=== PATIENT | male | born 1990 | race Caucasian/White ===

== ENCOUNTER 2020-12-30 11:50 | Emergency (ER) | payer BC, SELFPAY ==
[2020-12-30 11:53] VITALS: BP 152/100; PULSE 85; RESP 16; TEMP 37.1; O2SAT 100
--- NOTE | 2020-12-30 12:24 | ED.SKABFB ---
HPI - Skin/Abscess/Foreign Bdy General Chief complaint: Unspecified Stated complaint: abscess Time Seen by Provider: 12/30/20 12:00 History of Present Illness HPI narrative: Painful lump in right axilla for 2 weeks. Becoming larger and now it is red and warm. Started while he was using crutches for a leg in [place]. No systemic symptoms. Related Data Allergies Allergy/AdvReac Type Severity Reaction Status Date / Time No Known Allergies Allergy Verified 12/30/20 11:52 Review of Systems Review of Systems: All systems reviewed & are unremarkable except as noted in HPI and below Constitutional: Constitutional: Denies chills and Denies fever(s) ENT: Reports system reviewed and no additional complaints, except as documented Cardiovascular: Cardiovascular: Denies chest pain Respiratory: Respiratory: Denies dyspnea Gastrointestinal: Gastrointestinal: Denies nausea Neurologic: Denies numbness and Denies weakness PMFSH Social History Social History Gender identity (if verbalized by the patient): Male Exam Const: General: healthy appearing, no acute distress and alert Orientation/consciousness: patient oriented x3 HENMT: Head: normal to inspection Neck: Neck: normal visual inspection and no lymphadenopathy Chest: Chest palpation & inspection: normal inspection of the chest and no tenderness Resp: Effort & Inspection: normal respiratory effort Auscultation: clear to auscultation bilaterally Cardio: Rate: regular rate Rhythm: regular rhythm Skin: Other: Erythema and induration of the right axilla with multiple bumps. No obvious fluctance Neuro: General: patient oriented x3, moves all extremities, no focal motor deficits and CN's II-XI intact bilaterally Speech: normal speech Extrem: General: normal to inspection Course Vital Signs Vital signs: Vital Signs Temperature 37.1 C 12/30/20 11:53 Pulse Rate 85 12/30/20 11:53 Respiratory Rate 16 12/30/20 11:53 Blood Pressure 152/100 H 12/30/20 11:53 Pulse Oximetry 100 12/30/20 11:53 Temperature 37.1 C 12/30/20 11:53 Pulse Rate 85 12/30/20 11:53 Respiratory Rate 16 12/30/20 11:53 Blood Pressure 152/100 H 12/30/20 11:53 Pulse Oximetry 100 12/30/20 11:53 Procedures Abscess I/D other: Date of Incision: 12/30/20 Time of Incision: 13:14 Local Anesthetic: lidocaine 1% and with epi Amount of anesthesia used (mL): 5 Technique: incised with #11 blade Amount of fluid expressed (mL): 3 Irrigation: Yes Packing used?: none I&D Results: Pus MDM - Skin/Abscess/Foreign Bdy Differential Diagnosis Differential diagnosis: Likely abscess of skin or subcutaneous tissue and cellulitis Discharge Plan Discharge Clinical Impression: Abscess of axilla, right Patient Disposition: Home, Self-Care Condition: Stable Instructions: Antibiotic Form, Abscess (ED) Additional Instructions: Keep follow-up appointment as planned Prescriptions: New sulfamethoxazole-trimethoprim [Bactrim DS] 800-160 mg tablet 1 tablet PO Q12H Qty: 20 RF: 0 Follow-up/Referrals: PHYSICIAN,GLACIOLOGIST [Primary Care Provider] -
== END 2020-12-30 13:26 | disposition home or self-care (01) ==
PROVIDERS: Emergency Provider Emergency Medicine
DX: L02.411 Cutaneous abscess of right axilla (principal)
CPT/HCPCS: 10060; 99283; A9270

== ENCOUNTER 2021-01-17 16:09 | Emergency (ER) | payer BC, SELFPAY ==
[2021-01-17 16:35] VITALS: BP 154/92; PULSE 88; RESP 18; TEMP 37; O2SAT 100
--- NOTE | 2021-01-17 17:57 | ED.GENADULT ---
HPI - General Adult General Chief complaint: Skin/Abscess/Foreign Body Stated complaint: Abscess under R arm Time Seen by Provider: 01/17/21 17:57 Source: patient and family Mode of arrival: ambulatory Limitations: no limitations History of Present Illness HPI narrative: Patient is here for evaluation of right axillary abscess that was drained and treated in December. In hand it never completely healed. At that time he was treated with Septra for 10 days. At this time there is a firm area in the center of his axilla and a reddened ring encircling it that appears to be yeast. Significant other states that it does drain quite a bit. No fever or chills. It is quite painful. Onset (ago): day(s) Location: upper extremity (axilla on right.) Severity: severe Quality: sharp Pain Consistency: constant Relieving factors: none Exacerbating factors: movement Associated symptoms: denies other symptoms Treatments prior to arrival: none Related Data Allergies Allergy/AdvReac Type Severity Reaction Status Date / Time No Known Allergies Allergy Verified 12/30/20 11:52 Review of Systems Review of Systems: All systems reviewed & are unremarkable except as noted in HPI and below [facility] Social History Social History Gender identity (if verbalized by the patient): Male Exam Const: General: no acute distress and alert Orientation/consciousness: patient oriented x3 HENMT: Head: normal to inspection Teeth and gingiva: abnormal tooth and associated gingiva (significant caries) Eyes: Pupils: Equal, round and reactive pupils present Resp: Effort & Inspection: normal respiratory effort Cardio: Rate: regular rate Rhythm: regular rhythm Skin: General skin exam: normal color Wounds: wounds noted (abscess ) Course Vital Signs Vital signs: Vital Signs Temperature 37.0 C 01/17/21 16:35 Pulse Rate 88 01/17/21 16:35 Respiratory Rate 18 01/17/21 16:35 Blood Pressure 154/92 H 01/17/21 16:35 Pulse Oximetry 100 01/17/21 16:35 Temperature 37.0 C 01/17/21 16:35 Pulse Rate 88 01/17/21 16:35 Respiratory Rate 18 01/17/21 16:35 Blood Pressure 154/92 H 01/17/21 16:35 Pulse Oximetry 100 01/17/21 16:35 Medical Decision Making Vital Signs Vital Signs: Vital Signs Temperature 37.0 C 01/17/21 16:35 Pulse Rate 88 01/17/21 16:35 Respiratory Rate 18 01/17/21 16:35 Blood Pressure 154/92 H 01/17/21 16:35 Pulse Oximetry 100 01/17/21 16:35 Temperature 37.0 C 01/17/21 16:35 Pulse Rate 88 01/17/21 16:35 Respiratory Rate 18 01/17/21 16:35 Blood Pressure 154/92 H 01/17/21 16:35 Pulse Oximetry 100 01/17/21 16:35 Discharge Plan Discharge Clinical Impression: Lenore infection Abscess of skin or subcutaneous tissue Qualifiers: Site of cutaneous abscess: extremity Site of cutaneous abscess of extremity: axilla Laterality: right Qualified Code(s): L02.411 - Cutaneous abscess of right axilla Patient Disposition: Home, Self-Care Condition: Stable Instructions: Antibiotic Form, Skin Yeast Infection (ED) Additional Instructions: He received your first dose of antibiotics and antifungal medication here in the emergency room please continue as prescribed. The area needs to be washed with warm soapy water several times a day and dried completely. Do your best to keep the area dry. When washing apply warm soaks to the area and attempt to express material from the abscess sites. If not improved at the end of treatment we do need to see a surgeon for further evaluation. And follow-up with your primary care physician the first available date understanding that you have a appointment for 3 weeks. If that can be moved up that would be best. Prescriptions: New clindamycin HCl 300 mg capsule 300 mg PO Q6H Qty: 30 RF: 0 fluconazole 150 mg tablet 150 mg PO DAILY Qty: 7 RF: 0 No Action sulfamethoxazole-trimetho
[2021-01-17] MEDS: LIDOCAINE/PRILOCAINE CREAM 2.5-2.5% TUBE 1 EACH TOPICAL (19:15)
[2021-01-17] MEDS: FLUCONAZOLE 150 MG TABLET PO (20:50)
[2021-01-17] MEDS: CLINDAMYCIN HCL 150 MG CAP 450 MG PO (20:50)
== END 2021-01-17 21:31 | disposition home or self-care (01) ==
PROVIDERS: Emergency Provider Emergency Medicine
DX: L02.411 Cutaneous abscess of right axilla (principal); B37.9 Candidiasis, unspecified
CPT/HCPCS: 99283; A9270

== ENCOUNTER 2024-09-08 19:23 | Emergency (ER) | payer SELFPAY ==
[2024-09-08] VITALS (22 sets, daily range): BP systolic 111–151; BP diastolic 74–94; PULSE 74–101; RESP 16–28; TEMP 36.4; O2SAT 98–100
--- NOTE | ~2024-09-08 | CT_ITS ---
EXAMINATION: CT abdomen pelvis w con DATE: 09/08/2024 22:33 INDICATION: RUQ pain TECHNIQUE: Computed tomography (CT) of the abdomen and pelvis was performed with 100 mL Omnipaque-350 intravenous contrast. Automated exposure control and iterative reconstruction technique were employe d. The dose-length product was 747.31 mGy-cm. COMPARISON: None. FINDINGS: Lower thorax: Significant bilateral gynecomastia. Bilateral dependent atelectasis. Liver: Mildly enlarged. Biliary/Gallbladder: Mild pericholecystic fluid and moderate pericholecystic inflammatory change. No gallstones detected. No bile duct dilation. Pancreas: No mass or duct dilation. Spleen: Mildly enlarged. Adrenals:No mass. Kidneys: No suspicious mass, obstructing stone, or hydronephrosis. GI tract: No small or large bowel dilation. Short segment area of pericolonic inflammatory change hep atic flexure, presumably reactive. Normal appendix. Mesentery/Peritoneum: No ascites, mass, or free air. Retroperitoneum: No mass. Pelvis: Pelvic organs are within normal limits. Soft Tissues: Soft tissues and body wall unremarkable. Bones: No acute osseous finding. IMPRESSION: Bilateral gynecomastia. Hepatosplenomegaly. Cholecystitis. Mild inflammatory change at the hepatic flexure is presumably reactive to the adjacent gallbladder in flammation. Reviewed, dictated and finalized at location K. HEALTH CARE WORKER IMPRESSION: Bilateral gynecomastia. Hepatosplenomegaly. Cholecystitis. Mild inflammatory change at the hepatic flexure is presumably reactive to the a djacent gallbladder inflammation.
--- OUTSIDE RECORDS SUMMARY | 2024-09-08 19:26 | XMS_ITS | CONTINUITY OF CARE DOCUMENT ---
Author Name chris perez Address Unknown Organization [facility] Address [address] [place] [address] Phone [phone] Care Team Providers Care Cafeteria Assistant Name Role Phone Beau ALVA, Lance Unavailable RONNY GRANADOS MD Unavailable [phone] RONNY GRANADOS MD Unavailable [phone] INSURANCE PROVIDERS Payer name Policy type / Coverage type [place] red green party ID SELF PAY [facility] [id number]
[2024-09-08 21:11] LABS: Basophils Absolute Auto 0.1 K/mm3 (0.0-0.1); Basophils Percent Auto 0.7 % (0.2-1.2); Eosinophils Absolute Auto 0.1 K/mm3 (0-0.3); Eosinophils Percent Auto 1.1 % (0-4.4); Hematocrit 38.6 % (42.0-52.0); Hemoglobin 13.2 g/dL (14.0-18.0); Immature Granulocyte Absolute 0.03 K/mm3 (0.00-0.031); Immature Granulocyte Percent A 0.3 % (0-0.5); Lymphocytes Absolute Auto 1.63 K/mm3 (0.9-3.2); Lymphocytes Percent Auto 17.1 % (18.3-44.2); Mean Corpuscular HGB Conc 34.2 g/dl (32-36); Mean Corpuscular Hemoglobin 30.1 pg (26-34); Mean Corpuscular Volume 87.9 fl (80-100); Mean Platelet Volume 11.6 fl (7.4-10.4); Monocytes Absolute Auto 0.5 K/mm3 (0.1-0.6); Monocytes Percent Auto 5.3 % (2.6-8.5); Neutrophils Absolute Auto 7.2 K/mm3 (1.3-6.7); Neutrophils Percent Auto 75.5 % (45.5-73.1); Platelet Count Result 217 k/mm3 (150-375); Red Blood Count 4.39 M/mm3 (4.6-6.20); Red Cell Distribution Width 12.1 % (11.5-14.5); White Blood Count 9.5 K/mm3 (4.5-10.0)
[2024-09-08 21:22] LABS: Alanine Aminotransferase 172 U/L (6-50); Albumin Level 4.1 g/dL (3.5-5.1); Alkaline Phosphatase 144 U/L (38-126); Anion Gap 12 mmol/L (4-12); Aspartate Amino Transferase 58 U/L (17-59); Bilirubin,Total 0.5 mg/dL (0.2-1.3); Blood Urea Nitrogen 14 mg/dL (9-20); Calcium 8.7 mg/dL (8.4-10.2); Carbon Dioxide 22 mmol/L (22-30); Chloride 105 mmol/L (98-107); Estimated CRCL calculation 168 ml/min; Estimated Glomerular Filt Rate > 60; Glucose 104 mg/dL (65-110); Lipase 56 U/L (23-300); Potassium 4.2 mmol/L (3.4-5.0); Sodium 139 mmol/L (137-145)
--- OUTSIDE RECORDS SUMMARY | 2024-09-08 21:31 | XMS_ITS | CONTINUITY OF CARE DOCUMENT ---
Author Name chris perez Address Unknown Organization [facility] Address [address] [place] [address] Phone [phone] Care Team Providers Care Adult Probation Officer Name Role Phone Beau ALVA, Lance Unavailable [phone] RONNY GRANADOS MD Unavailable [phone] RONNY GRANADOS MD Unavailable [phone] INSURANCE PROVIDERS Payer name Policy type / Coverage type [place] red libertarian ID SELF PAY [facility] [id number]
--- NOTE | 2024-09-08 21:33 | ED.ABDPAIN ---
HPI - Abdominal Pain General Chief Complaint: Abdominal Pain Stated Complaint: abd pain Time Seen by Provider: 09/08/24 21:03 Source: patient Mode of arrival: ambulatory Limitations: no limitations History of Present Illness HPI narrative: This is a 34 year old male that presents to the ER for abdominal pain. Ongoing over the last 3 days. Reports associated nausea and vomiting. Reports he was seen at [facility] when pain initially started, but the pain has continued/worsened. Denies fevers. Related Data Allergies Allergy/AdvReac Type Severity Reaction Status Date / Time No Known Allergies Allergy Verified 09/08/24 19:45 Review of Systems Review of Systems: CONSTITUTIONAL: Denies fever GASTROINTESTINAL: Reports abdominal pain, nausea, vomiting All systems reviewed & are unremarkable except as noted in HPI and below PMFSH Social History Social History (Updated 09/08/24 @ 21:39 by Marion Okefee PA-C) Substance use: never Gender identity (if verbalized by the patient): Male Exam Narrative: GENERAL: Well-appearing, well-nourished, and in no acute distress. HEAD: Normocephalic, atraumatic. EYES: EOMI. CHEST: Clear to auscultation. No respiratory distress. No wheezes rales or rhonchi HEART: Regular rate and rhythm. No murmur heard. Normal peripheral pulses. ABDOMEN: Soft, nondistended, normal active bowel sounds. Mild tenderness to palpation in the right upper quadrant, without guarding EXTREMITIES: Normal range of motion. No edema. SKIN: Warm, dry, no rash. NEURO: No focal deficits. Alert and oriented x3. PSYCH: Normal mood and affect Course Course Emergency Course: Patient updated on his workup. Resting comfortably. Reports he is ready for discharge Vital Signs Vital signs: Vital Signs Temperature 97.5 F L 09/08/24 19:36 Pulse Rate 95 09/08/24 19:36 Respiratory Rate 20 09/08/24 19:36 Blood Pressure 151/90 H 09/08/24 19:36 Pulse Oximetry 100 09/08/24 19:36 Oxygen Delivery Room Air 09/08/24 19:36 Temperature 97.5 F L 09/08/24 19:36 Pulse Rate 97 09/08/24 22:45 Respiratory Rate 22 H 09/08/24 22:45 Blood Pressure 136/93 H 09/08/24 22:17 Pulse Oximetry 100 09/08/24 22:45 Oxygen Delivery Room Air 09/08/24 19:36 MDM - Abdominal Pain MDM Narrative Medical decision making narrative: Patient presents to the emergency department for right upper quadrant abdominal pain. Ongoing over the last couple of days. He is afebrile and nontoxic appearing. His vitals are stable. Cbc without leukocytosis. Metabolic panel with mild elevation in ALT. Lipase is normal. Urine without evidence of infection. CT abdomen and pelvis shows inflammation of the gallbladder. Patient was hydrated in the ER. He did not want any pain medication. Patient updated on his workup. Resting comfortably. Reports he is ready for discharge. Will be started on oral antibiotics. Was instructed on a low-fat diet and will be given pain medication. He is to follow up with General surgery. He was given warnings to return to the ER Differential Diagnosis Differential diagnosis: Likely other (Cholecystitis, biliary colic, pancreatitis) Lab Data Attestation: I reviewed the patient's lab results. 09/08/24 20:22 09/08/24 20:22 Labs: Lab Results 09/08/24 09/08/24 Range/Units 20:22 22:17 WBC 9.5 (4.5-10.0) K/mm3 RBC 4.39 L (4.6-6.20) M/mm3 Hgb 13.2 L (14.0-18.0) g/dL Hct 38.6 L (42.0-52.0) % MCV 87.9 (80-100) fl MCH 30.1 (26-34) pg MCHC 34.2 (32-36) g/dl RDW 12.1 (11.5-14.5) % Plt Count 217 (150-375) k/mm3 MPV 11.6 H (7.4-10.4) fl Immature Gran % (Auto) 0.3 (0-0.5) % Neut % (Auto) 75.5 H (45.5-73.1) % Lymph % (Auto) 17.1 L (18.3-44.2) % [place] % (Auto) 5.3 (2.6-8.5) % Eos % (Auto) 1.1 (0-4.4) % Baso % (Auto) 0.7 (0.2-1.2) % Lymph # (Auto) 1.63 (0.9-3.2) K/mm3 [place] # (Auto) 0.5 (0.1-0.6) K/mm3 Eos # (Auto) 0.1 (0-0.3) K/mm3 Baso # (Auto) 0.1 (0.0-0.1) K/mm3 Abs Immat Gran (auto) 0.03 (0.00-0.031) K/mm3 Absolute Neuts (auto) 7.2 H (1.3-6.7) K/mm3 Absolute Nucleated RBC 0.000 (0.0-0.012) K/mm3 Nucleated RBC % 0.0 (0.0-0.2) % Sodium 139 (137-145) mmol/L Potassium 4.2 (3.4-5.0) mmol/L Chloride 105 (98-107) mmol/L Carbon Dioxide 22 (22-30) mmol/L Anion Gap 12 (4-12) mmol/L BUN 14 (9-20) mg/dL Creatinine 0.60 L (0.7-1.3) mg/dL Estim Creat Clear Calc 168 ml/min Estimated GFR > 60 (59 - ) Glucose 104 (65-110) mg/dL Calcium 8.7 (8.4-10.2) mg/dL Total Bilirubin 0.5 (0.2-1.3) mg/dL AST 58 (17-59) U/L ALT 172 H (6-50) U/L Alkaline Phosphatase 144 H (38-126) U/L Total Protein 7.0 (6.3-8.2) g/dL Albumin 4.1 (3.5-5.1) g/dL Lipase 56 (23-300) U/L Urine Color Yellow (Yellow) Urine Appearance Clear (Clear) Urine pH 6.5 (5.0-9.0) Ur Specific [place] 1.018 (1.001-1.035) Urine Protein Negative (Negative) mg/dL Urine Glucose (UA) Negative (Negative) mg/dL Urine Ketones Negative (Negative) mg/dL Ur Blood (Man) Negative (Negative) Urine Nitrate Negative (Negative) Urine Bilirubin Negative (Negative) Urine Urobilinogen 1.0 (<2.0) mg/dL Leukocyte Esterase Rfl Negative (Negative) DUYEN/UL Imaging Data Radiologist's impression: ITS Impressions Abdomen/Pelvis CT 09/08/24 22:54 IMPRESSION: Bilateral gynecomastia. Hepatosplenomegaly. Cholecystitis. Mild inflammatory change at the hepatic flexure is presumably reactive to the adjacent gallbladder inflammation. Critical Care Time Critical Care Time Critical Care Time: No Discharge Plan Discharge Clinical Impression: Biliary colic Patient Disposition: Home, Self-Care Condition: Improved Instructions: Antibiotic Form, Biliary Colic (ED), Low Fat Diet (ED) Additional Instructions: Return to the ER if you experience fever, worsening abdominal pain with nausea and vomiting, you are unable to keep down liquids or solids, or any other symptoms that are concerning to you Remain well hydrated. Take oral antibiotic as prescribed. Pain medication as needed. Low fat diet Follow up with general surgery Patient Language: Kiswahili Prescriptions: New hydrocodone-acetaminophen 5-325 mg tablet 1 tablet PO Q6H PRN (Reason: pain) Qty: 14 0RF amoxicillin-pot clavulanate 875-125 mg tablet 1 tablet PO Q12H 5 Days Qty: 10 0RF No Action sulfamethoxazole-trimethoprim [Bactrim DS] 800-160 mg tablet 1 tablet PO Q12H Qty: 20 0RF clindamycin HCl 300 mg capsule 300 mg PO Q6H Qty: 30 0RF fluconazole 150 mg tablet 150 mg PO DAILY Qty: 7 0RF Follow-up/Referrals: Destini Murrell MD [Physician] - PHYSICIAN,PUBLIC ADDRESS SERVICER [Primary Care Provider] -
[2024-09-08] MEDS: SODIUM CHLORIDE 0.9% IV 1,000 ML 999 ML IV CONT (21:39)
[2024-09-08 22:34] LABS: Add Urine Microscopic? NO; Appearance Urine Clear (Clear); Bilirubin Urine Negative (Negative); Blood Urine Negative (Negative); Color Urine Yellow (Yellow); Glucose Urine UA Negative (Negative); Ketones Urine Negative (Negative); Leukocyte Esterase Ur Negative LEU/UL (Negative); Nitrate Urine Negative (Negative); Protein Urine Negative (Negative); Specific Grav Ur 1.018 (1.001-1.035); pH Urine 6.5 (5.0-9.0)
[2024-09-09 00:12] VITALS: BP 132/84; PULSE 91; RESP 16; O2SAT 100
== END 2024-09-09 00:13 | disposition home or self-care (01) ==
PROVIDERS: Emergency Provider Physician Assistant
DX: K80.40 Calculus of bile duct with cholecystitis, unspecified, without obstruction (principal); R16.2 Hepatomegaly with splenomegaly, not elsewhere classified; N62 Hypertrophy of breast
CPT/HCPCS: 36415; 74177; 80053; 81003; 83690; 85025; 96360; 99284; J7030; Q9967

== ENCOUNTER 2025-05-20 22:01 | Emergency (ER) | payer SELFPAY ==
--- NOTE | ~2025-05-20 | CT_ITS ---
EXAMINATION: CT abdomen pelvis w con DATE: 05/21/2025 00:08 INDICATION: Cholelithiasis. TECHNIQUE: Computed tomography (CT) of the abdomen and pelvis was performed with 100 mL Omnipaque 350 intravenous contrast. Automated exposure control and iterative reconstruction technique were employed. The dose-length product was 819.76 mGy-cm. COMPARISON: CT abdomen and pelvis 09/08/2024 FINDINGS: The visualized portions of lung bases demonstrate mild atelectasis. No pleural effusion. The heart size is normal. No pericardial effusion. There is diffuse hepatic steatosis. The spleen is normal. The gallbladder is normal in size. The pancreas, adrenal glands, and kidneys are normal. There are no dilated loops of bowel. The appendix is normal. There are no pathologically enlarged lymph nodes. There is no free intraperitoneal fluid. There is mild thoracic and lumbar spondylosis. IMPRESSION: 1. Diffuse hepatic steatosis. Reviewed, dictated and finalized at location E. ICIAN ASSISTANT SURGERY
[2025-05-20 22:05] VITALS: BP 164/98; PULSE 74; RESP 18; TEMP 36.6; O2SAT 100
[2025-05-20 22:25] LABS: Hematocrit 41.3 % (42.0-52.0); Hemoglobin 13.9 g/dL (14.0-18.0); Immature Granulocyte Percent A 0.2 % (0-0.5); Lymphocytes Absolute Auto 3.51 K/mm3 (0.9-3.2); Mean Corpuscular HGB Conc 33.7 g/dl (32-36); Mean Corpuscular Hemoglobin 29.3 pg (26-34); Mean Corpuscular Volume 87.1 fl (80-100); Nucleated Red Blood Cells Absolute Auto 0.000 K/mm3 (0.0-0.012); Nucleated Red Blood Cells Perc 0.0 % (0.0-0.2); Platelet Count Result 252 k/mm3 (150-375); Red Blood Count 4.74 M/mm3 (4.6-6.20); White Blood Count 9.3 K/mm3 (4.5-10.0)
[2025-05-20 22:38] LABS: Alanine Aminotransferase 30 U/L (6-50); Albumin Level 4.5 g/dL (3.5-5.1); Alkaline Phosphatase 88 U/L (38-126); Anion Gap 9 mmol/L (4-12); Aspartate Amino Transferase 28 U/L (17-59); Bilirubin,Total 0.5 mg/dL (0.2-1.3); Blood Urea Nitrogen 13 mg/dL (9-20); Calcium 8.5 mg/dL (8.4-10.2); Carbon Dioxide 26 mmol/L (22-30); Chloride 103 mmol/L (98-107); Estimated CRCL calculation 145 ml/min; Estimated Glomerular Filt Rate > 60; Glucose 121 mg/dL (65-110); Lipase 113 U/L (23-300); Potassium 3.9 mmol/L (3.4-5.0); Sodium 138 mmol/L (137-145); Total Protein 7.8 g/dL (6.3-8.2)
--- NOTE | 2025-05-20 23:43 | ED_ITS ---
HPI - Abdominal Pain General Chief Complaint: Abdominal Pain Stated Complaint: back pain / flank pain Time Seen by Provider: 05/20/25 22:38 History of Present Illness HPI narrative: Patient is a 35-year-old male presents to the ER with complaints of severe back pain and emesis. He reports his back pain started approximately 2 hours prior to arrival. Patient reports it radiates slightly around to his right side. He denies any injury to his back, recent fevers, abnormal urinary symptoms, or constipation. Patient endorses a history of gallbladder attacks but reports he has not had a cholecystectomy due to insurance. He denies any other medical history and does not take any daily medications. Patient denies any alcohol or marijuana use. Related Data Allergies Allergy/AdvReac Type Severity Reaction Status Date / Time No Known Allergies Allergy Verified 05/20/25 22:01 Review of Systems 2 Review of Systems: All systems reviewed & are unremarkable except as noted in HPI and below PMFSH Social History Social History Substance use: never Gender identity (if verbalized by the patient): Male Exam 2 Narrative: GENERAL: Ill appearing, well-nourished, non-toxic, in mild distress d/t pain HEAD: Normocephalic, atraumatic. NECK: Supple. No adenopathy, no masses. RESPIRATORY: Airway patent, respirations nonlabored. Clear to auscultation bilaterally, no rales, rhonchi, wheezing. CARDIOVASCULAR: Regular rate and rhythm without murmurs, rubs, or gallops. Peripheral pulses 2+ and equal bilaterally. ABDOMINAL: Soft, right lower quadrant tenderness with palpation, mildly distended, no hepatosplenomegaly. Normoactive BS. + Baxter sign, positive McBurney's point, positive psoas sign MUSCULOSKELETAL: Moves all extremities. Strength/ROM intact without gross deformities. SKIN: Warm, dry, normal color. No rashes. NEURO: A&O X3. Speech clear. Cranial nerves II-XII intact. No ataxic movements. PSYCHIATRIC: Appropriate mood and affect. Normal interaction. Course Vital Signs Vital signs: Vital Signs Temperature 36.6 C 05/20/25 22:05 Pulse Rate 74 05/20/25 22:05 Respiratory Rate 18 05/20/25 22:05 Blood Pressure 164/98 H 05/20/25 22:05 Pulse Oximetry 100 05/20/25 22:05 Oxygen Delivery Room Air 05/20/25 22:05 Temperature 36.6 C 05/20/25 22:05 Pulse Rate 74 05/20/25 22:05 Respiratory Rate 18 05/20/25 22:05 Blood Pressure 164/98 H 05/20/25 22:05 Pulse Oximetry 100 05/20/25 22:05 Oxygen Delivery Room Air 05/20/25 22:05 MDM - Abdominal Pain MDM Narrative Medical decision making narrative: Patient is a 35-year-old male presents to the ER with complaints of severe back pain and emesis. He reports his back pain started approximately 2 hours prior to arrival. Patient reports it radiates slightly around to his right side. He denies any injury to his back, recent fevers, abnormal urinary symptoms, or constipation. Patient endorses a history of gallbladder attacks but reports he has not had a cholecystectomy due to insurance. He denies any other medical history and does not take any daily medications. Patient denies any alcohol or marijuana use. Labs Ordered: CBC, CMP, UDS, lipase, UA Imaging Ordered: CT abdomen pelvis Medications Ordered: Dilaudid 0.5 mg IV, Zofran 4 mg IV, 1 L normal saline IV bolus Results: Patient's CT scan indicates no calcified gallstones are seen. There may be some fluid around the gallbladder. No biliary ductal dilatation is noted. The kidneys demonstrate bilateral function. No evidence of hydronephrosis. No calculi are noted within the urinary bladder. Unremarkable CT scan appearance noted in the appendix. Enlarged fatty liver. Splenomegaly. Diagnosis: biliary colic Consults: General surgery (outpatient), Dr. Dyson Patient Education/Shared MDM: Results of lab work and imaging shared with patient. He endorses improvement of symptoms following medication administration. Patient strongly advised to maintain hydration status upon discharge and follow-up with General surgery as soon as possible for further evaluation of his gallbladder. He will not be discharged home with any new prescriptions, but was advised to take Tylenol and ibuprofen for pain control. Pt will be given a dose of Toradol prior to discharge. Strict return precautions provided. Patient verbalized understanding and is in agreement with plan. Vital signs stable at time of discharge. All questions answered. Differential Diagnosis Differential diagnosis: Likely abdominal pain, calculus of kidney, constipation, diverticulitis, pancreatitis and small bowel obstruction Lab Data Attestation: I reviewed the patient's lab results. 05/20/25 22:19 05/20/25 22:19 Labs: Lab Results 05/20/25 05/21/25 Range/Units 22:19 01:08 WBC 9.3 (4.5-10.0) K/mm3 RBC 4.74 (4.6-6.20) M/mm3 Hgb 13.9 L (14.0-18.0) g/dL Hct 41.3 L (42.0-52.0) % MCV 87.1 (80-100) fl MCH 29.3 (26-34) pg MCHC 33.7 (32-36) g/dl RDW 12.5 (11.5-14.5) % Plt Count 252 (150-375) k/mm3 MPV 10.5 H (7.4-10.4) fl Immature Gran % (Auto) 0.2 (0-0.5) % Neut % (Auto) 52.7 (45.5-73.1) % Lymph % (Auto) 37.6 (18.3-44.2) % [place] % (Auto) 7.0 (2.6-8.5) % Eos % (Auto) 1.5 (0-4.4) % Baso % (Auto) 1.0 (0.2-1.2) % Lymph # (Auto) 3.51 H (0.9-3.2) K/mm3 [place] # (Auto) 0.7 H (0.1-0.6) K/mm3 Eos # (Auto) 0.1 (0-0.3) K/mm3 Baso # (Auto) 0.1 (0.0-0.1) K/mm3 Abs Immat Gran (auto) 0.02 (0.00-0.031) K/mm3 Absolute Neuts (auto) 4.9 (1.3-6.7) K/mm3 Absolute Nucleated RBC 0.000 (0.0-0.012) K/mm3 Nucleated RBC % 0.0 (0.0-0.2) % Sodium 138 (137-145) mmol/L Potassium 3.9 (3.4-5.0) mmol/L Chloride 103 (98-107) mmol/L Carbon Dioxide 26 (22-30) mmol/L Anion Gap 9 (4-12) mmol/L BUN 13 (9-20) mg/dL Creatinine 0.70 (0.7-1.3) mg/dL Estim Creat Clear Calc 145 ml/min Estimated GFR > 60 (59 - ) Glucose 121 H (65-110) mg/dL Calcium 8.5 (8.4-10.2) mg/dL Total Bilirubin 0.5 (0.2-1.3) mg/dL AST 28 (17-59) U/L ALT 30 (6-50) U/L Alkaline Phosphatase 88 (38-126) U/L Total Protein 7.8 (6.3-8.2) g/dL Albumin 4.5 (3.5-5.1) g/dL Lipase 113 (23-300) U/L Urine Color Yellow (Yellow) Urine Appearance Clear (Clear) Urine pH 7.0 (5.0-9.0) Ur Specific [place] > 1.045 H (1.001-1.035) Urine Protein Trace (Negative) mg/dL Urine Glucose (UA) Negative (Negative) mg/dL Urine Ketones Negative (Negative) mg/dL Ur Blood (Man) Negative (Negative) Urine Nitrate Negative (Negative) Urine Bilirubin Negative (Negative) Urine Urobilinogen 1.0 (<2.0) mg/dL Leukocyte Esterase Rfl Negative (Negative) DUYEN/UL Urine RBC 0-2 (0-2) /hpf Urine WBC 6-10 H (0-3) /hpf Ur Squamous Epith Cells None seen (Few) /hpf Urine Bacteria None seen /hpf Urine Casts 0-2 Urine Opiates Screen Negative (Negative) Urine Methadone Screen Negative (Negative) Ur Barbiturates Screen Negative (Negative) Ur Phencyclidine Scrn Negative (Negative) Ur Amphetamine Screen Negative (Negative) U Benzodiazepines Scrn Negative (Negative) Urine Cocaine Screen Negative (Negative) U Cannabinoids Screen Negative (Negative) Imaging Data Attestation: I personally reviewed and interpreted this imaging study as follows: Radiologist's impression: Patient's CT scan indicates no calcified gallstones are seen. There may be some fluid around the gallbladder. No biliary ductal dilatation is noted. The kidneys demonstrate bilateral function. No evidence of hydronephrosis. No calculi are noted within the urinary bladder. Unremarkable CT scan appearance noted in the appendix. Enlarged fatty liver. Splenomegaly. Discharge Plan Discharge Clinical Impression: Biliary colic, Abdominal pain with radiation to back, Fatty liver Patient Disposition: Home Condition: Stable Instructions: Antibiotic Form, Biliary Colic (ED) Additional Instructions: Please return to the ER with any worsening symptoms. Follow-up with General surgery for further evaluation and treatment. You may take Tylenol and/or ibuprofen for pain control. Patient Language: Chinese Prescriptions: No Action sulfamethoxazole-trimethoprim [Bactrim DS] 800-160 mg tablet 1 tablet PO Q12H Qty: 20 0RF clindamycin HCl 300 mg capsule 300 mg PO Q6H Qty: 30 0RF fluconazole 150 mg tablet 150 mg PO DAILY Qty: 7 0RF hydrocodone-acetaminophen 5-325 mg tablet 1 tablet PO Q6H PRN (Reason: pain) Qty: 14 0RF amoxicillin-pot clavulanate 875-125 mg tablet 1 tablet PO Q12H 5 Days Qty: 10 0RF Follow-up/Referrals: PHYSICIAN,STATION ENGINEER MAIN LINE [Primary Care Provider, Internal Medicine] Devan Dyson MD [Physician, General Surgery] Stand Alone Forms: Work/School Release IP Time of Disposition: 02:06
[2025-05-20] MEDS: HYDROmorphone HCL INJ (*CRX) 1 MG/ML SYR 0.5 MG IV PUSH (23:55)
[2025-05-20] MEDS: ONDANSETRON INJ 4 MG/2 ML VIAL IV PUSH (23:56)
[2025-05-20] MEDS: SODIUM CHLORIDE 0.9% IV 1,000 ML 999 ML IV CONT (23:58)
--- NOTE | 2025-05-20 23:59 | PC.NURSE ---
This RN attempted to collect urine sample from pt two times, pt stating he is not able to urinate at this moment.
[2025-05-21 01:20] LABS: Add Urine Microscopic? YES; Appearance Urine Clear (Clear); Glucose Urine UA Negative (Negative); Leukocyte Esterase Ur Negative LEU/UL (Negative); Nitrate Urine Negative (Negative); Non Pathogenic Casts 0-2; Specific Grav Ur > 1.045 (1.001-1.035)
[2025-05-21 01:31] LABS: Cannabinoid Screen Urine Negative (Negative)
[2025-05-21] MEDS: KETOROLAC 15 MG/ML VIAL (*BKC) IV PUSH (02:22)
[2025-05-21 02:23] VITALS: BP 125/80; PULSE 80; RESP 24; TEMP 36.8; O2SAT 100
== END 2025-05-21 02:24 | disposition home or self-care (01) ==
PROVIDERS: Emergency Medicine; Emergency Provider Registered Nurse
DX: M54.9 Dorsalgia, unspecified (principal); R10.31 Right lower quadrant pain; K76.0 Fatty (change of) liver, not elsewhere classified
CPT/HCPCS: 36415; 74177; 80053; 80307; 81001; 83690; 85025; 87086; 96361; 96374; 96375; 99284; J1171; J1885; J2405; J7030; Q9967

== ENCOUNTER 2025-05-23 13:04 | Emergency (ER) | payer SELFPAY ==
--- NOTE | ~2025-05-23 | US_ITS ---
US right upper quadrant Indication: pain Comparison: None Technique: Tom-scale and color Doppler images were obtained. Findings: LIVER: Mild increased echogenicity of the liver. . GALLBLADDER/BILIARY: There is cholelithiasis,, no wall thickening, no pericholecystic fluid. CBD 6 mm. [place] sign negative. PANCREAS: Pancreas limited by bowel gas. Right Kidney: Right kidney 11.5 x 4.9 x 4.2 cm, normal. Impression: Cholelithiasis Reviewed, dictated and finalized at location P. USION PARAEDUCATOR Impression: Cholelithiasis
[2025-05-23 13:05] VITALS: BP 162/94; PULSE 96; RESP 20; TEMP 36.4; O2SAT 100
--- NOTE | 2025-05-23 14:05 | ED_ITS ---
HPI - General Adult General Chief complaint: Back Pain/Injury Stated complaint: right flank pain Time Seen by Provider: 05/23/25 13:55 History of Present Illness HPI narrative: Patient is a 35-year-old male who presents the ER with right-sided abdominal pain and flank pain. Ongoing throughout the day. Reports history of gallstones and has had similar pain in the past. He has nausea and dry heaving. No fevers or chills. No alleviating factors. Related Data Allergies Allergy/AdvReac Type Severity Reaction Status Date / Time No Known Allergies Allergy Verified 05/20/25 22:01 Review of Systems 2 Review of Systems: All systems reviewed & are unremarkable except as noted in HPI and below Constitutional: Constitutional: Reports no additional constitutional complaints ENT: Reports system reviewed and no additional complaints, except as documented Cardiovascular: Cardiovascular: Reports no additional cardiovascular complaints Respiratory: Respiratory: Reports no additional respiratory complaints Gastrointestinal: Gastrointestinal: Reports no additional gastrointestinal complaints PMFSH Past Medical History Medical History (Updated 05/23/25 @ 17:06 by Freddie Blackwell MD) Biliary colic Fatty liver Social History Social History Substance use: never Gender identity (if verbalized by the patient): Male Exam 2 Narrative: GENERAL: Uncomfortable-appearing, well-nourished, and in no acute distress. HEAD: Normocephalic, atraumatic. ENT: Mucous membranes moist. CHEST: Clear to auscultation. No respiratory distress. HEART: Regular rate and rhythm. Normal peripheral pulses. ABDOMEN: Soft, TTP RUQ, nondistended. EXTREMITIES: Normal range of motion. No edema. SKIN: Warm, dry, no rash. NEURO: Alert and oriented x3. PSYCH: Normal mood and affect. Course Course Emergency Course: Pain resolved with morphine. Discussed labs and imaging results. Encourage low-fat diet and follow up with General surgery. Patient has not had his gallbladder out due to insurance issues. Vital Signs Vital signs: Vital Signs Temperature 97.6 F 05/23/25 13:05 Pulse Rate 96 05/23/25 13:05 Respiratory Rate 20 05/23/25 13:05 Blood Pressure 162/94 H 05/23/25 13:05 Pulse Oximetry 100 05/23/25 13:05 Temperature 97.6 F 05/23/25 13:05 Pulse Rate 74 05/23/25 14:53 Respiratory Rate 20 05/23/25 14:53 Blood Pressure 153/80 H 05/23/25 14:53 Pulse Oximetry 100 05/23/25 14:53 Medical Decision Making Vital Signs Vital Signs: Vital Signs Temperature 97.6 F 05/23/25 13:05 Pulse Rate 96 05/23/25 13:05 Respiratory Rate 20 05/23/25 13:05 Blood Pressure 162/94 H 05/23/25 13:05 Pulse Oximetry 100 05/23/25 13:05 Temperature 97.6 F 05/23/25 13:05 Pulse Rate 74 05/23/25 14:53 Respiratory Rate 20 05/23/25 14:53 Blood Pressure 153/80 H 05/23/25 14:53 Pulse Oximetry 100 05/23/25 14:53 Lab Data 05/23/25 14:10 05/23/25 14:10 Labs: Lab Results 05/23/25 Range/Units 14:10 WBC 9.3 (4.5-10.0) K/mm3 RBC 4.51 L (4.6-6.20) M/mm3 Hgb 13.4 L (14.0-18.0) g/dL Hct 39.7 L (42.0-52.0) % MCV 88.0 (80-100) fl MCH 29.7 (26-34) pg MCHC 33.8 (32-36) g/dl RDW 12.6 (11.5-14.5) % Plt Count 237 (150-375) k/mm3 MPV 11.1 H (7.4-10.4) fl Immature Gran % (Auto) 0.2 (0-0.5) % Neut % (Auto) 66.3 (45.5-73.1) % Lymph % (Auto) 24.0 (18.3-44.2) % [place] % (Auto) 7.3 (2.6-8.5) % Eos % (Auto) 1.2 (0-4.4) % Baso % (Auto) 1.0 (0.2-1.2) % Lymph # (Auto) 2.24 (0.9-3.2) K/mm3 [place] # (Auto) 0.7 H (0.1-0.6) K/mm3 Eos # (Auto) 0.1 (0-0.3) K/mm3 Baso # (Auto) 0.1 (0.0-0.1) K/mm3 Abs Immat Gran (auto) 0.02 (0.00-0.031) K/mm3 Absolute Neuts (auto) 6.2 (1.3-6.7) K/mm3 Absolute Nucleated RBC 0.000 (0.0-0.012) K/mm3 Nucleated RBC % 0.0 (0.0-0.2) % Sodium 140 (137-145) mmol/L Potassium 4.1 (3.4-5.0) mmol/L Chloride 106 (98-107) mmol/L Carbon Dioxide 26 (22-30) mmol/L Anion Gap 8 (4-12) mmol/L BUN 11 (9-20) mg/dL Creatinine 0.70 (0.7-1.3) mg/dL Estim Creat Clear Calc 163 ml/min Estimated GFR > 60 (59 - ) Glucose 100 (65-110) mg/dL Calcium 8.7 (8.4-10.2) mg/dL Total Bilirubin 0.6 (0.2-1.3) mg/dL AST 33 (17-59) U/L ALT 31 (6-50) U/L Alkaline Phosphatase 82 (38-126) U/L Total Protein 7.6 (6.3-8.2) g/dL Albumin 4.5 (3.5-5.1) g/dL Lipase 73 (23-300) U/L Imaging Data Radiologist's impression: ITS Impressions Upper Quadrant Ultrasound 05/23/25 15:18 Impression: Cholelithiasis Discharge Plan Discharge Clinical Impression: Cholelithiasis Patient Disposition: Home Condition: Stable Instructions: Biliary Colic (ED) Additional Instructions: Return to the emergency department if you develop severe abdominal pain, severe nausea and vomiting to the point where you are unable to keep down fluids, if you develop chest pain or difficulty breathing, blood in your stool, dizziness or fainting, or if you develop any other new or concerning symptoms as these could be signs of more serious medical illness. Try to stay well hydrated. Patient Language: Maldivian Prescriptions: No Action sulfamethoxazole-trimethoprim [Bactrim DS] 800-160 mg tablet 1 tablet PO Q12H Qty: 20 0RF clindamycin HCl 300 mg capsule 300 mg PO Q6H Qty: 30 0RF fluconazole 150 mg tablet 150 mg PO DAILY Qty: 7 0RF hydrocodone-acetaminophen 5-325 mg tablet 1 tablet PO Q6H PRN (Reason: pain) Qty: 14 0RF amoxicillin-pot clavulanate 875-125 mg tablet 1 tablet PO Q12H 5 Days Qty: 10 0RF Follow-up/Referrals: Destini Murrell MD [Physician, General Surgery] - 1 Week PHYSICIAN,DATABASE ADMINISTRATOR [Primary Care Provider, Internal Medicine]
[2025-05-23] MEDS: ONDANSETRON INJ 4 MG/2 ML VIAL IV PUSH (14:11)
[2025-05-23] MEDS: MORPHINE SULFATE (*CRX) 4 MG/ML INJ IV PUSH (14:11)
[2025-05-23] MEDS: SODIUM CHLORIDE 0.9% IV 1,000 ML 999 ML IV CONT (14:11)
[2025-05-23 14:19] LABS: Hematocrit 39.7 % (42.0-52.0); Hemoglobin 13.4 g/dL (14.0-18.0); Immature Granulocyte Percent A 0.2 % (0-0.5); Lymphocytes Absolute Auto 2.24 K/mm3 (0.9-3.2); Mean Corpuscular HGB Conc 33.8 g/dl (32-36); Mean Corpuscular Hemoglobin 29.7 pg (26-34); Mean Corpuscular Volume 88.0 fl (80-100); Nucleated Red Blood Cells Absolute Auto 0.000 K/mm3 (0.0-0.012); Nucleated Red Blood Cells Perc 0.0 % (0.0-0.2); Platelet Count Result 237 k/mm3 (150-375); Red Blood Count 4.51 M/mm3 (4.6-6.20); White Blood Count 9.3 K/mm3 (4.5-10.0)
[2025-05-23 14:29] LABS: Alanine Aminotransferase 31 U/L (6-50); Albumin Level 4.5 g/dL (3.5-5.1); Alkaline Phosphatase 82 U/L (38-126); Anion Gap 8 mmol/L (4-12); Aspartate Amino Transferase 33 U/L (17-59); Bilirubin,Total 0.6 mg/dL (0.2-1.3); Blood Urea Nitrogen 11 mg/dL (9-20); Calcium 8.7 mg/dL (8.4-10.2); Carbon Dioxide 26 mmol/L (22-30); Chloride 106 mmol/L (98-107); Estimated CRCL calculation 163 ml/min; Estimated Glomerular Filt Rate > 60; Glucose 100 mg/dL (65-110); Lipase 73 U/L (23-300); Potassium 4.1 mmol/L (3.4-5.0); Sodium 140 mmol/L (137-145); Total Protein 7.6 g/dL (6.3-8.2)
[2025-05-23 14:53] VITALS: BP 153/80; PULSE 74; RESP 20; O2SAT 100
== END 2025-05-23 17:37 | disposition home or self-care (01) ==
PROVIDERS: Emergency Provider Emergency Medicine
DX: K80.20 Calculus of gallbladder without cholecystitis without obstruction (principal)
CPT/HCPCS: 36415; 76705; 80053; 83690; 85025; 96361; 96374; 96375; 99284; J2270; J2405; J7030

== ENCOUNTER 2025-06-06 14:43 | Emergency (ER) | payer SELFPAY ==
[2025-06-06] VITALS (14 sets, daily range): BP systolic 143–153; BP diastolic 88–91; PULSE 69–90; RESP 11–27; TEMP 36.7; O2SAT 98–100
--- NOTE | ~2025-06-06 | CT_ITS ---
Dinesh Lux EXAMINATION: CT abdomen pelvis w con COMPARISON: None HISTORY: RUQ pain TECHNIQUE: Axial images were obtained through the abdomen, pelvis post administration of IV contrast. Oral contrast was also administered. Coronal reconstruction images were obtained from the axial views. CT scan performed using dose optimization techniques including the following automated exposure control; adjustment of mA and/or kV; use of iterative reconstruction technique. Automatic exposure control was used to reduce radiation dose. Permanent radiation dose record is archived to PACS. FINDINGS: CT abdomen: LUNG BASES: The lung bases are clear. The visualized portions of the heart and pericardium are unremarkable. LIVER: Moderate hepatic steatosis. SPLEEN: Unremarkable. KIDNEYS: Right Kidney: Unremarkable. No calculi. No hydronephrosis. Left Kidney: Unremarkable. No calculi. No hydronephrosis ADRENAL GLANDS: Unremarkable. PANCREAS: Unremarkable. GALLBLADDER/BILIARY: Unremarkable. No biliary dilatation. STOMACH AND ESOPHAGUS: Visualized stomach and esophagus within normal limits. BOWEL/MESENTERY: Moderate fecal content, no colitis or diverticulitis, mild diverticulosis. Appendix normal. Mesentery normal. There are no thickened or dilated loops of small bowel. ADENOPATHY/RETROPERITONEUM: No lymphadenopathy. AORTA/VASCULATURE: Normal caliber aorta. FREE FLUID OR FREE AIR: None. CT pelvis: SOLID ORGANS/REPRODUCTIVE: Unremarkable. BLADDER: Within normal limits. OSSEOUS STRUCTURES: No acute osseous abnormality.No suspicious lesions. OVERLYING SOFT TISSUES: Unremarkable. IMPRESSION: 1. No etiology identified to explain the patient's symptoms. Follow-up suggested if symptoms persist. Reviewed, dictated and finalized at location P. WARE SUPPORT ENGINEER IMPRESSION: 1. No etiology identified to explain the patient's symptoms. Follow-up suggeste d if symptoms persist.
[2025-06-06 15:01] LABS: Hematocrit 39.5 % (42.0-52.0); Hemoglobin 13.3 g/dL (14.0-18.0); Immature Granulocyte Percent A 0.2 % (0-0.5); Lymphocytes Absolute Auto 3.04 K/mm3 (0.9-3.2); Mean Corpuscular HGB Conc 33.7 g/dl (32-36); Mean Corpuscular Hemoglobin 29.8 pg (26-34); Mean Corpuscular Volume 88.6 fl (80-100); Nucleated Red Blood Cells Absolute Auto 0.000 K/mm3 (0.0-0.012); Nucleated Red Blood Cells Perc 0.0 % (0.0-0.2); Platelet Count Result 228 k/mm3 (150-375); Red Blood Count 4.46 M/mm3 (4.6-6.20); White Blood Count 8.5 K/mm3 (4.5-10.0)
[2025-06-06] MEDS: ONDANSETRON INJ 4 MG/2 ML VIAL IV PUSH (15:16)
[2025-06-06] MEDS: MORPHINE SULFATE (*CRX) 4 MG/ML INJ IV PUSH (15:16)
--- NOTE | 2025-06-06 15:20 | ED.ABDPAIN ---
HPI - Abdominal Pain General Chief Complaint: Abdominal Pain Stated Complaint: R flank pain Time Seen by Provider: 06/06/25 14:46 Source: patient Mode of arrival: ambulatory Limitations: no limitations History of Present Illness HPI narrative: This is a 35-year-old male that presents to the emergency department for right upper quadrant abdominal pain. Ongoing over the last couple of hours. Reports associated nausea. Reports history of gallbladder problems, has not been able follow-up with general surgery for this yet. Related Data Allergies Allergy/AdvReac Type Severity Reaction Status Date / Time No Known Allergies Allergy Verified 05/20/25 22:01 Review of Systems Review of Systems: All systems reviewed & are unremarkable except as noted in HPI and below PMFSH Past Medical History Medical History (Updated 06/06/25 @ 16:21 by Marion Okeefe PA-C) Biliary colic Fatty liver Social History Social History Substance use: never Gender identity (if verbalized by the patient): Male Exam Narrative: GENERAL: Well-appearing, well-nourished, and in no acute distress. HEAD: Normocephalic, atraumatic. EYES: EOMI. CHEST: Clear to auscultation. No respiratory distress. No wheezes rales or rhonchi HEART: Regular rate and rhythm. No murmur heard. Normal peripheral pulses. ABDOMEN: Soft, nondistended, normal active bowel sounds. Tender to palpation in the right upper quadrant, without guarding EXTREMITIES: Normal range of motion. No edema. SKIN: Warm, dry, no rash. NEURO: No focal deficits. Alert and oriented x3. PSYCH: Normal mood and affect Course Course Emergency Course: Patient resting comfortably Vital Signs Vital signs: Vital Signs Pulse Rate 89 06/06/25 14:50 Respiratory Rate 14 06/06/25 14:50 Pulse Oximetry 100 06/06/25 14:50 Temperature 98.1 F 06/06/25 14:52 Pulse Rate 69 06/06/25 16:16 Respiratory Rate 27 H 06/06/25 16:16 Blood Pressure 143/89 H 06/06/25 15:16 Pulse Oximetry 99 06/06/25 16:16 MDM - Abdominal Pain MDM Narrative Medical decision making narrative: This is a 35 year old male that presents to the ER for right upper quadrant abdominal pain. He is afebrile and nontoxic appearing. his vitals are stable. Cbc without leukocytosis. Metabolic panel without concerning findings. urine without evidence of infection. CT abdomen pelvis without acute findings. Patient updated on his workup. Agrees with plan of care. He was given warnings to return to the ER Differential Diagnosis Differential diagnosis: Likely calculus of kidney, diverticulitis and other (biliary colic, GERD, esophagitis, gastritis) Lab Data Attestation: I reviewed the patient's lab results. 06/06/25 14:55 06/06/25 14:55 Labs: Lab Results 06/06/25 06/06/25 Range/Units 14:55 15:38 WBC 8.5 (4.5-10.0) K/mm3 RBC 4.46 L (4.6-6.20) M/mm3 Hgb 13.3 L (14.0-18.0) g/dL Hct 39.5 L (42.0-52.0) % MCV 88.6 (80-100) fl MCH 29.8 (26-34) pg MCHC 33.7 (32-36) g/dl RDW 12.8 (11.5-14.5) % Plt Count 228 (150-375) k/mm3 MPV 10.9 H (7.4-10.4) fl Immature Gran % (Auto) 0.2 (0-0.5) % Neut % (Auto) 53.6 (45.5-73.1) % Lymph % (Auto) 35.7 (18.3-44.2) % [place] % (Auto) 8.3 (2.6-8.5) % Eos % (Auto) 1.3 (0-4.4) % Baso % (Auto) 0.9 (0.2-1.2) % Lymph # (Auto) 3.04 (0.9-3.2) K/mm3 [place] # (Auto) 0.7 H (0.1-0.6) K/mm3 Eos # (Auto) 0.1 (0-0.3) K/mm3 Baso # (Auto) 0.1 (0.0-0.1) K/mm3 Abs Immat Gran (auto) 0.02 (0.00-0.031) K/mm3 Absolute Neuts (auto) 4.6 (1.3-6.7) K/mm3 Absolute Nucleated RBC 0.000 (0.0-0.012) K/mm3 Nucleated RBC % 0.0 (0.0-0.2) % Sodium 137 (137-145) mmol/L Potassium 4.5 (3.4-5.0) mmol/L Chloride 105 (98-107) mmol/L Carbon Dioxide 27 (22-30) mmol/L Anion Gap 5 (4-12) mmol/L BUN 13 (9-20) mg/dL Creatinine 0.71 (0.7-1.3) mg/dL Estim Creat Clear Calc 161 ml/min Estimated GFR > 60 (59 - ) Glucose 99 (65-110) mg/dL Calcium 8.7 (8.4-10.2) mg/dL Total Bilirubin 0.6 (0.2-1.3) mg/dL AST 23 (17-59) U/L ALT 20 (6-50) U/L Alkaline Phosphatase 75 (38-126) U/L Total Protein 7.3 (6.3-8.2) g/dL Albumin 4.2 (3.5-5.1) g/dL Lipase 75 (23-300) U/L Urine Color Yellow (Yellow) Urine Appearance Cloudy H (Clear) Urine pH 7.5 (5.0-9.0) Ur Specific [place] 1.019 (1.001-1.035) Urine Protein Negative (Negative) mg/dL Urine Glucose (UA) Negative (Negative) mg/dL Urine Ketones Negative (Negative) mg/dL Ur Blood (Man) Negative (Negative) Urine Nitrate Negative (Negative) Urine Bilirubin Negative (Negative) Urine Urobilinogen 0.2 (<2.0) mg/dL Leukocyte Esterase Rfl Negative (Negative) DUYEN/UL Urine RBC 0-2 (0-2) /hpf Urine WBC 0-5 (0-3) /hpf Ur Squamous Epith Cells Few (Few) /hpf Urine Bacteria None seen /hpf Urine Casts 0-2 Imaging Data Radiologist's impression: ITS Impressions Abdomen/Pelvis CT 06/06/25 15:50 IMPRESSION: 1. No etiology identified to explain the patient's symptoms. Follow-up suggested if symptoms persist. Critical Care Time Critical Care Time Critical Care Time: No Discharge Plan Discharge Clinical Impression: Biliary colic Patient Disposition: Home Condition: Stable Instructions: Biliary Colic (ED), Low Fat Diet (ED) Additional Instructions: Return to the ER if you experience fever, abdominal pain with nausea and vomiting, you are unable to keep down liquids or solids, or any other symptoms that are concerning to you Low fat diet Follow up with general surgery Patient Language: Wolof Prescriptions: No Action sulfamethoxazole-trimethoprim [Bactrim DS] 800-160 mg tablet 1 tablet PO Q12H Qty: 20 0RF clindamycin HCl 300 mg capsule 300 mg PO Q6H Qty: 30 0RF fluconazole 150 mg tablet 150 mg PO DAILY Qty: 7 0RF hydrocodone-acetaminophen 5-325 mg tablet 1 tablet PO Q6H PRN (Reason: pain) Qty: 14 0RF amoxicillin-pot clavulanate 875-125 mg tablet 1 tablet PO Q12H 5 Days Qty: 10 0RF Follow-up/Referrals: PHYSICIAN,PHYSICAL LABORATORY ASSISTANT [Primary Care Provider, Internal Medicine] Devan Dyson MD [Physician, General Surgery]
[2025-06-06 15:21] LABS: Alanine Aminotransferase 20 U/L (6-50); Albumin Level 4.2 g/dL (3.5-5.1); Alkaline Phosphatase 75 U/L (38-126); Anion Gap 5 mmol/L (4-12); Aspartate Amino Transferase 23 U/L (17-59); Bilirubin,Total 0.6 mg/dL (0.2-1.3); Blood Urea Nitrogen 13 mg/dL (9-20); Calcium 8.7 mg/dL (8.4-10.2); Carbon Dioxide 27 mmol/L (22-30); Chloride 105 mmol/L (98-107); Estimated CRCL calculation 161 ml/min; Estimated Glomerular Filt Rate > 60; Glucose 99 mg/dL (65-110); Lipase 75 U/L (23-300); Potassium 4.5 mmol/L (3.4-5.0); Sodium 137 mmol/L (137-145); Total Protein 7.3 g/dL (6.3-8.2)
[2025-06-06 15:47] LABS: Add Urine Microscopic? YES; Appearance Urine Cloudy (Clear); Glucose Urine UA Negative (Negative); Leukocyte Esterase Ur Negative LEU/UL (Negative); Nitrate Urine Negative (Negative); Non Pathogenic Casts 0-2; Specific Grav Ur 1.019 (1.001-1.035)
== END 2025-06-06 17:28 | disposition home or self-care (01) ==
PROVIDERS: Emergency Provider Physician Assistant
DX: R10.11 Right upper quadrant pain (principal)
CPT/HCPCS: 36415; 74177; 80053; 81001; 83690; 85025; 96374; 96375; 99284; J2270; J2405; Q9967